=== PATIENT | male | born 1945 | race Two or more races ===

== ENCOUNTER 2021-12-12 14:21 | Emergency (ER) | payer MEDICARE, OTHER ==
[~2021-12-12] VITALS: Ht 172.7 cm; Wt 77.1 kg
[~2021-12-12 14:21] MED LIST: ASPI325T4 PO; CLOP75TA28; LEVEMIR SC; LISI20TA28 PO; MET25T PO; METF-489 PO; NIAC500T71 PO
[2021-12-12] MEDS ORDERED: ACET-1080 PO ×3 (15:41→16:35)
[2021-12-12] MEDS ORDERED: CLIN300C8 PO ×3 (15:41→16:35)
[2021-12-12 15:49] VITALS: BP 162/91
== END 2021-12-12 16:03 | disposition home or self-care (01) ==
LOC: ER 14:21
DX: K02.9 Dental caries, unspecified (principal); I10 Essential (primary) hypertension; I25.10 Atherosclerotic heart disease of native coronary artery without angina pectoris; I25.2 Old myocardial infarction; E11.9 Type 2 diabetes mellitus without complications; E78.5 Hyperlipidemia, unspecified; Z86.73 Personal history of transient ischemic attack (TIA), and cerebral infarction without residual deficits; Z79.82 Long term (current) use of aspirin; Z79.4 Long term (current) use of insulin; Z79.01 Long term (current) use of anticoagulants; Z79.2 Long term (current) use of antibiotics; Z79.899 Other long term (current) drug therapy